=== PATIENT | female | born 1965 ===

== ENCOUNTER 2018-09-27 02:56 | Emergency (ER) | payer OTHER ==
[~2018-09-27] VITALS: Ht 167.6 cm; Wt 68.0 kg
--- NOTE | 2018-09-27 03:30 | NUR ---
PT'S 17 YEAR OLD DAUGHTER WITH PT, ASSISTING PT WITH EMESIS BAG.
--- NOTE | 2018-09-27 04:14 | NUR ---
PT SLEEPING ON GURNEY ON RIGHT LATERAL SIDE. VSS AND WILL CONT TO MONITOR.
--- NOTE | 2018-09-27 05:11 | NUR ---
PT IN BED MOANING. PT STATES SHE HAS TO PEE. PT AGREEABLE TO BED ISSA. ONCE ON BED ISSA PT STATES SHE CANNOT GO. DAUGHTER HAS RETURNED TO BEDSIDE. PT REQUESTS TO BE LEFT ON BED ISSA. PTS DAUGHTER STATES SHE WILL CALL WHEN PT IS DONE. PT REQUESTING HER NOT BE CALLED. PT WAS INFORMED HER HAS NOT BEEN CALLED. PT STATES "GOOD I ONLY WANT MY DAUGHTER TO KNOW". PTS DAUGHTER THEN STATES SHE CANCELLED HER VOLLEYBALL TOURNAMENT TODAY TO TAKE CARE OF HER MOTHER. PT APPRECIATIVE OF THIS. PT EXPRESSING WORRY ABOUT WHAT THE OTHER PARENTS AT THE TOURNAMENT WILL THINK OF HER.
--- NOTE | 2018-09-27 05:37 | NUR ---
BED ISSA REMOVED. PT GIVEN WARM BLANKET PER REQUEST. DAUGHTER REMAINS AT BEDSIDE. PT CRYING DUE TO HER WORRY ABOUT THE OTHER MOTHERS ON THE VOLLEYBALL TEAM FINDING OUT ABOUT HER. POC DISCUSSED. DAUGHTER DENIES CURRENT NEEDS.
[2018-09-27 06:39] VITALS: BP 118/74
--- NOTE | 2018-09-27 06:39 | NUR ---
PT AMBULATES TO RESTROOM AND BACK INTO BED WITH STEADY GAIT. PT REQUESTING TO LEAVE. PT CHANGING INTO DRY CLOTHES AT THIS TIME.
== END 2018-09-27 06:47 | disposition home or self-care (01) ==
LOC: ED 06:45
DX: F10.120 Alcohol abuse with intoxication, uncomplicated (principal)
CPT/HCPCS: 99283